=== PATIENT | male | born 1980 | race Two or more races ===

== ENCOUNTER 2017-03-18 22:31 | Emergency (ER) | payer SELFPAY ==
[~2017-03-18] VITALS: Ht 170.2 cm; Wt 77.1 kg
[~2017-03-18 22:31] MED LIST: LOMOTIL TABLET1 EACH ORAL; ONDANSETRON ODT4 MG ORAL
[2017-03-18 22:43] VITALS: BP 129/80
[2017-03-18] MEDS ORDERED: TdaP Vaccine 0.5ml Syr IM ONE ×2 (23:03→23:15)
[2017-03-18] MEDS ORDERED: IBUPROFEN600 MG ORAL (23:09)
[2017-03-18] MEDS ORDERED: KEFLEX500 MG ORAL (23:09)
--- NOTE | 2017-03-18 23:10 | Emergency Room Report ---
History of Present Illness General Chief Complaint: Lower Extremity Injury Source: Patient Present Illness HPI Is a 36-year-old male with no past medical history. He presents with chief complaint of puncture wound to the foot. Onset was acute. This occurred at 2 to 3 PM this afternoon. This occurred when he was trying on clothes [employer]. He was barefoot and stepped on the metal part of the security sensor. It punctured his foot. It was bleeding initially. Not bleeding now. No other injury. Pain is 7/10. Worse with Walking. Allergies: Coded Allergies: No Known Allergies (Unverified , 08/23/13) Patient History Past Medical History: see triage record, old chart reviewed Past Surgical History: none Pertinent Family History: none Social History: Denies: smoking Immunizations: other Reviewed Nursing Documentation: PMH: Agreed, PSxH: Agreed Nursing Documentation-PMH Past Medical History: No Stated History Review of Systems Eye: Denies: blurred vision, eye pain ENT: Denies: ear pain, nose congestion, throat swelling Respiratory: Denies: cough, shortness of breath Cardiovascular: Denies: chest pain, palpitations Gastrointestinal: Denies: abdominal pain, diarrhea, nausea, vomiting Musculoskeletal: Denies: back pain, joint pain Skin: Denies: rash Neurological: Denies: headache, numbness Endocrine: Denies: increased thirst, increased urine Hematologic/Lymphatic: Denies: easy bruising All Other Systems: negative except mentioned in HPI Physical Exam Vital Signs Date Time Temp Pulse Resp B/P Pulse Ox O2 Delivery O2 Flow Rate FiO2 03/18/17 22:43 98.2 71 16 129/80 100 Room Air vitals normal Sp02 EP Interpretation: reviewed, normal General Appearance: well appearing, no apparent distress, alert Head: normocephalic, atraumatic Eyes: bilateral eye EOMI, bilateral eye PERRL ENT: hearing grossly normal, normal pharynx Neck: full range of motion, supple, no meningismus Respiratory: chest non-tender, lungs clear, normal breath sounds Cardiovascular #1: regular rate, rhythm, no murmur Gastrointestinal: normal bowel sounds, non tender, no mass, no organomegaly, no bruit, non-distended Musculoskeletal: back normal, gait/station normal, normal range of motion, other - Sole of the left foot: There is a small puncture wound at the base of the fifth toe. No active bleeding. Full range of motion. Neurologic: alert, oriented x3 Psychiatric: mood/affect normal Skin: warm/dry Medical Decision Making Diagnostic Impression: Primary Impression: Puncture wound of left foot excluding toes without complication Qualified Codes: S91.332A - Puncture wound without foreign body, left foot, initial encounter ER Course Patient with minor puncture wound. No evidence of infection. We'll discharge home. tetanus updated. Last Vital Signs Date Time Temp Pulse Resp B/P Pulse Ox O2 Delivery O2 Flow Rate FiO2 03/18/17 22:43 98.2 71 16 129/80 100 Room Air Status: improved Disposition: HOME, SELF-CARE Condition: Stable Scripts Ibuprofen* (MOTRIN*) 600 Mg Tablet 600 MG ORAL Q8H Y for For Pain, #30 TAB 0 Refills Prov: FINN CASTAÑEDA M.D. 03/18/17 Cephalexin* (KEFLEX*) 500 Mg Capsule 500 MG ORAL TID, #21 CAP 0 Refills Prov: FINN CASTAÑEDA M.D. 03/18/17 Additional Instructions: Keep wound clean. Followup with your DrDestiny in 7 days. Return if worse. FINN CASTAÑEDA M.D. Mar 18, 2017 23:09
== END 2017-03-18 23:30 | disposition home or self-care (01) ==
LOC: EMR 23:20
DX: S91.332A Puncture wound without foreign body, left foot, initial encounter (principal); W22.8XXA Striking against or struck by other objects, initial encounter; Y92.512 Supermarket, store or market as the place of occurrence of the external cause; Z23 Encounter for immunization
CPT/HCPCS: 90471; 90715; 96372; 99284